=== PATIENT | male | born 1975 | race African-American/Black ===

== ENCOUNTER 2017-07-10 00:10 | Emergency (ER) | payer SELFPAY ==
[~2017-07-10] VITALS: Ht 167.6 cm; Wt 80.7 kg
[2017-07-10 00:25] VITALS: BP 134/81
[2017-07-10] MEDS ORDERED: FAMO20TA5 PO (00:52)
[2017-07-10] MEDS ORDERED: PRED50TA PO (00:52)
--- NOTE | 2017-07-10 00:52 | PHYS DOC ---
Past Medical History Past Medical History: No Pertinent History Past Surgical History: Other Additional Past Surgical Histo: L knee sx Alcohol Use: None Drug Use: None Adult General Chief Complaint Chief Complaint: ALLERGIC REACTION HPI HPI Patient is a 42 year old male who presents with an allergic reaction. Patient states he used a new hair dye and his face was swollen this morning. He states he also developed a rash. Patient denies any difficulty breathing or swallowing throat or tongue swelling. Review of Systems Review of Systems Constitutional: Denies fever or chills [] Eyes: Denies change in visual acuity, redness, or eye pain [] HENT: Denies nasal congestion or sore throat [] Respiratory: Denies cough or shortness of breath [] Cardiovascular: No additional information not addressed in HPI [] GI: Denies abdominal pain, nausea, vomiting, bloody stools or diarrhea [] : Denies dysuria or hematuria [] Musculoskeletal: Denies back pain or joint pain [] Integument: Facial swelling and a rash from allergic reaction. Neurologic: Denies headache, focal weakness or sensory changes [] All other systems were reviewed and found to be within normal limits, except as documented in this note. Current Medications Current Medications Current Medications Medications (Trade) Dose Ordered Sig/Jazmine Start Time Stop Time Status Last Admin Dose Admin Diphenhydramine HCl (Benadryl) 50 mg 1X ONCE 07/10/17 00:45 07/10/17 00:46 UNV Famotidine (Pepcid) 20 mg 1X ONCE 07/10/17 00:45 07/10/17 00:46 UNV Prednisone (Prednisone) 60 mg 1X ONCE 07/10/17 00:45 07/10/17 00:46 UNV Allergies Allergies Allergies Coded Allergies Type Severity Reaction Last Updated Verified No Known Drug Allergies 07/10/17 No Physical Exam Physical Exam Constitutional: Well developed, well nourished, no acute distress, non-toxic appearance. [] HENT: Normocephalic, atraumatic, bilateral external ears normal, oropharynx moist, no oral exudates, nose normal. [] His airway is open Eyes: PERRLA, EOMI, conjunctiva normal, no discharge. [] Neck: Normal range of motion, no tenderness, supple, no stridor. [] Cardiovascular:Heart rate regular rhythm, no murmur [] Lungs & Thorax: Bilateral breath sounds clear to auscultation [] Abdomen: Bowel sounds normal, soft, no tenderness, no masses, no pulsatile masses. [] Skin: Warm, dry, mild amount of facial swelling noted on the right side of the upper face especially around the right eye. Fine erythematous papular rash noted on the forehead, lewis, and scattered throughout the head. Back: No tenderness, no CVA tenderness. [] Extremities: No tenderness, no cyanosis, no clubbing, ROM intact, no edema. [] Neurologic: Alert and oriented X 3, normal motor function, normal sensory function, no focal deficits noted. [] Psychologic: Affect normal, judgement normal, mood normal. [] Current Patient Data Vital Signs Vital Signs Date Time Temp Pulse Resp B/P (MAP) Pulse Ox O2 Delivery O2 Flow Rate FiO2 07/10/17 00:25 98.0 81 20 99 Room Air 98.0 EKG EKG [] Radiology/Procedures Radiology/Procedures [] Course & Med Decision Making Course & Med Decision Making Pertinent Labs and Imaging studies reviewed. (See chart for details) Patient is in the ED with an allergic reaction to hair dye. He has facial swelling and a rash. His airway is open. He has no difficulty breathing or swallowing. He was given prednisone and Benadryl and Pepcid in the ED and discharged with the same. I recommended washing his hair several times a day including washing it tonight before bed. Provided him return precautions. Discharged in stable condition. Requested he does not use the hair dye Dragon Disclaimer Dragon Disclaimer This electronic medical record was generated, in whole or in part, using a voice recognition dictation system. Departure Departure Impression: Primary Impression: Allergic reaction Disposition: 01 HOME, SELF-CARE Condition: STABLE Referrals: LYNNETTE DEGROOT (PCP) Follow-up with your doctor in one week Patient Instructions: Contact Dermatitis, [id number] Additional Instructions: You were seen with an allergic reaction to hair dye. Please do not use the hair dye again. Take Benadryl every 4 hours, Pepcid once a day and prednisone as prescribed. If Benadryl is making you too sleepy during the day you can take it at nighttime and take Zyrtec during the day or Claritin. Come back to the emergency room if symptoms worsen otherwise follow-up with your doctor in the next 7 days. Scripts Famotidine (FAMOTIDINE) 20 Mg Tablet 20 MG PO DAILY, #14 TAB Prov: TROY SLADE APRN 07/10/17 Prednisone (PREDNISONE) 50 Mg Tablet 1 TAB PO DAILY, #4 TAB Prov: TROY SLADE APRN 07/10/17 Problem Qualifiers Primary Impression: Allergic reaction Encounter type: initial encounter Qualified Codes: T78.40XA - Allergy, unspecified, initial encounter TROY SLADE APRN Jul 10, 2017 00:52
[2017-07-10] MEDS ORDERED: diphenhydrAMINE HCL 25 MG CAPSULE PO ONE (01:00)
[2017-07-10] MEDS ORDERED: predniSONE 20 MG TABLET PO ONE (01:00)
[2017-07-10] MEDS ORDERED: FAMOTIDINE 20 MG TABLET. PO ONE (01:00)
== END 2017-07-10 00:54 | disposition home or self-care (01) ==
LOC: ER 00:10
DX: T78.49XA Other allergy, initial encounter (principal); X58.XXXA Exposure to other specified factors, initial encounter
CPT/HCPCS: 99284; J7512; Q0163

== ENCOUNTER 2017-07-12 15:50 | Emergency (ER) | payer SELFPAY ==
[~2017-07-12] VITALS: Ht 167.6 cm; Wt 80.7 kg
[~2017-07-12 15:50] MED LIST: FAMO20TA5 PO; PRED50TA PO
--- NOTE | 2017-07-12 17:25 | PHYS DOC ---
Past Medical History Past Medical History: No Pertinent History Past Surgical History: Other Additional Past Surgical Histo: L knee sx Alcohol Use: None Drug Use: None Adult General Chief Complaint Chief Complaint: EYE PROBLEMS HPI HPI Patient is a 42 year old male who presents to be evaluated for bilateral eye swelling and lower eyelid itching due to an allergic reaction to hair dye. He was seen in the ED by me 2 days ago for the same complaint and was discharged on prednisone famotidine and Benadryl. He states he needs a note for work because he does not feel comfortable going to work today. Patient states his symptoms are improving. Patient denies any throat or tongue or lip swelling. Denies any difficulty breathing. Review of Systems Review of Systems Constitutional: Denies fever or chills [] Eyes: Bilateral eye swelling and itching. Denies change in visual acuity, redness, or eye pain [] HENT: Denies nasal congestion or sore throat [] Respiratory: Denies cough or shortness of breath [] Cardiovascular: No additional information not addressed in HPI [] GI: Denies abdominal pain, nausea, vomiting, bloody stools or diarrhea [] : Denies dysuria or hematuria [] Musculoskeletal: Denies back pain or joint pain [] Integument: Denies rash or skin lesions [] Neurologic: Denies headache, focal weakness or sensory changes [] All other systems were reviewed and found to be within normal limits, except as documented in this note. Current Medications Current Medications Current Medications Medications (Trade) Dose Ordered Sig/Jazmine Start Time Stop Time Status Last Admin Dose Admin Diphenhydramine HCl (Benadryl) 25 mg 1X ONCE 07/12/17 17:30 07/12/17 17:31 Famotidine (Pepcid) 20 mg 1X ONCE 07/12/17 17:30 07/12/17 17:31 Methylprednisolone Sodium Succinate (SOLU-Medrol 125MG VIAL) 125 mg 1X ONCE 07/12/17 17:30 07/12/17 17:31 Allergies Allergies Allergies Coded Allergies Type Severity Reaction Last Updated Verified No Known Drug Allergies 07/10/17 No Physical Exam Physical Exam Constitutional: Well developed, well nourished, no acute distress, non-toxic appearance. [] HENT: Normocephalic, atraumatic, bilateral external ears normal, oropharynx moist, no oral exudates, nose normal. [] Eyes: PERRLA, EOMI, conjunctiva normal, no discharge. [] Bilateral eyelids have small amount of swelling and redness on the lower eyelids. Neck: Normal range of motion, no tenderness, supple, no stridor. [] Cardiovascular:Heart rate regular rhythm, no murmur [] Lungs & Thorax: Bilateral breath sounds clear to auscultation [] Abdomen: Bowel sounds normal, soft, no tenderness, no masses, no pulsatile masses. [] Skin: Warm, dry, no erythema, no rash. [] Back: No tenderness, no CVA tenderness. [] Extremities: No tenderness, no cyanosis, no clubbing, ROM intact, no edema. [] Neurologic: Alert and oriented X 3, normal motor function, normal sensory function, no focal deficits noted. [] Psychologic: Affect normal, judgement normal, mood normal. [] Current Patient Data Vital Signs Vital Signs Date Time Temp Pulse Resp B/P (MAP) Pulse Ox O2 Delivery O2 Flow Rate FiO2 07/12/17 16:38 97.4 65 18 100 Room Air 97.4 EKG EKG [] Radiology/Procedures Radiology/Procedures [] Course & Med Decision Making Course & Med Decision Making Pertinent Labs and Imaging studies reviewed. (See chart for details) Patient is in the ED with bilateral eyelid swelling and redness from allergic reaction to hair dye. He was seen in the ED 2 days ago for the same complaint and was started on prednisone and famotidine and Benadryl. His symptoms have tremendously improved. Encouraged him to continue taking the prednisone Benadryl and Pepcid. He requested a work note which was provided. Dragon Disclaimer Dragon Disclaimer This electronic medical record was generated, in whole or in part, using a voice recognition dictation system. Departure Departure Impression: Primary Impression: Allergic reaction Disposition: 01 HOME, SELF-CARE Condition: STABLE Referrals: LYNNETTE DEGROOT (PCP) follow up this week Patient Instructions: Allergies, Generic Additional Instructions: Please continue taking the Prednisone, Benadryl and Pepcid for allergic reaction. Continue washing your hair twice a day. Follow-up with your own doctor in one to 2 weeks. 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
[2017-07-12] MEDS ORDERED: diphenhydrAMINE HCL 25 MG CAPSULE PO ONE (17:30)
[2017-07-12] MEDS ORDERED: methylPREDNISolone SOD SUCC PF 125 MG/2 ML VIAL. IM ONE (17:30)
[2017-07-12] MEDS ORDERED: FAMOTIDINE 20 MG TABLET. PO ONE (17:30)
== END 2017-07-12 17:33 | disposition home or self-care (01) ==
LOC: ER 15:50
DX: L23.5 Allergic contact dermatitis due to other chemical products (principal); H57.8 Other specified disorders of eye and adnexa
CPT/HCPCS: 96372; 99283; J2930; Q0163